=== PATIENT | female | born 1985 | race Caucasian/White ===

== ENCOUNTER 2016-03-15 10:42 | Emergency (ER) | payer OTHER ==
[2016-03-15 13:21] VITALS: BP 118/83
--- NOTE | 2016-03-16 20:19 | ED Physician Documentation ---
Female Urogenital Problems - HISTORIAN Historian: patient - HPI Stated Complaint: cramping RLQ, bloating, bleeding x 3 days Chief Complaint: Female Urogenital Problems Additional Information: cramps and heavy bleeding x 3 daysd, had similar episode 02/16. Onset: days ago (3) Severity: moderate Location of Pain: pelvic pain Front/Back of Body, Lg (Color): 1 - pain Further Comments: no - Vaginal Bleeding Abnormal Bleeding Started: 03/13/16 Compared to Menstrual Periods: heavier LNMP (Last Known Menstrual Period): 01/01/16 : 6 Para: 3 Where was Test Done: clinic (urine) Care: Yes Sexual History: active Contraceptive: none - Associated Symptoms Urinary Symptoms: none Discharge: denies: vaginal discharge - ROS CONST: none GI/: nausea CVS/RESP: none EYES/ENT: none NEURO/PSYCH: none MS/SKIN/LYMPH: none - PAST HX Past History: other (spontaneous miscarriages x 2) Other History: other (migraines) Surgeries/Procedures: none Immunizations: referred to PCP Allergies/Adverse Reactions: Allergies Allergy/AdvReac Type Severity Reaction Status Date / Time amoxicillin Allergy Verified 03/15/16 11:16 Penicillins Allergy Verified 03/15/16 11:16 - SOCIAL HX Smoking History: cigarettes, less than 1 pack/day Alcohol Use: none Drug Use: none - FAMILY HX Family History: none - VITAL SIGNS Vital Signs: Vital Signs Temp Pulse Resp BP Pulse Ox 97.8 F 99 H 16 118/83 99 03/15/16 13:18 03/15/16 13:18 03/15/16 13:18 03/15/16 13:18 03/15/16 13:18 - REVIEWED ASSESSMENTS Nursing Assessment Reviewed: Yes Vitals Reviewed: Yes Progress - Results/Orders Results/Orders: serum hcg qual and quant ordered - Progress Progress: pt. found to have no blood in vaginal vault, no active bleeding from cervical os , and closed cervical os. Critical Care Note - Critical Care Note Total Time (mins): 0 ED Results Lab/Radiology - Lab Results Lab Results: Lab Results 03/15/16 03/15/16 11:10 11:10 Serum HCG, Qual Positive H (NEGATIVE) Beta HCG, Quant 78 mIU/mL mIU/mL - Radiology Radiology Impressions: none ordered - Orders Orders: ED Orders Category Date Time Status HCG QUANTITATIVE Routine Lab 03/15/16 11:10 Completed SERUM HCG Routine Lab 03/15/16 11:10 Completed Female Urogenital Problems - EXAM General Appearance: alert, moderate distress EENT: eye inspection normal, ENT inspection normal, pharynx normal, no signs of dehydration, MERON, other (photosensitivity) Neck: nml inspection Respiratory: no resp. distress, breath sounds nml CVS: reg rate & rhythm, heart sounds normal, equal pulses, no murmur, no gallop Abdomen: soft, non-tender, no organomegaly, no distention, nml bowel sounds Pelvic: external exam nml, speculum exam nml, other (nonenlarged uterus). No: vaginal discharge, active bleeding, blood in vaginal vault, blood clots in vault , cervical dilation, adnexal tenderness (R), adnexal tenderness (L), mass (L) Back: non-tender, painless ROM Skin: color nml, no rash, warm,dry Extremities: non-tender, normal range of motion, no evidence of injury, no edema Neuro: oriented X3, CN's nml as tested, motor nml, sensation nml, mood/affect nml, cognition normal Discharge Clincal Impression: Intrauterine , Threatened Referrals: Primary Doctor,No [Primary Care Provider] - 2 Days Comments: discharged in stable condition with script for vicodin 5/325 #20 1 p.o. qid prn headache or abd. pain. Absolute rest. Follow up with ob next week as scheduled. NEEDS an US!. Return to ER immediately if bleeding recurs or pain worsens. Condition: Stable Disposition: 01 HOME, SELF-CARE Decision to Admit: NO Decision Time: 13:10
== END 2016-03-15 13:10 | disposition home or self-care (01) ==
LOC: ED 10:42
DX: O20.0 Threatened abortion (principal)
CPT/HCPCS: 84702; 84703; 99282

== ENCOUNTER 2016-03-27 18:47 | Emergency (ER) | payer OTHER ==
[2016-03-29] MEDS ORDERED: PHARMACY KEY 1 EACH EACH MC ONE (01:16)
== END 2016-03-27 19:28 | disposition left against medical advice (07) ==
LOC: ED 18:47
DX: R51 Headache (principal)
CPT/HCPCS: 99281

== ENCOUNTER 2016-09-17 18:58 | Emergency (ER) | payer SELFPAY ==
[2016-09-17 19:21] VITALS: BP 118/56
[2016-09-17 19:45] LABS: BASOPHILS % 0.4 (0.0-1.5); EOSINOPHILS % 4.3 % (0.0-6.8); MEAN CORPUSCULAR HEMOGLOBIN 31.1 pg (28.0-34.0); MEAN CORPUSCULAR VOLUME 94.1 fl (80.0-100.0); MONOCYTES % 3.1 % (0.0-11.0); NEUTROPHILS # 7.3 # k/uL (1.4-7.7)
--- NOTE | 2016-09-17 19:46 | ED Physician Documentation ---
General Adult - HISTORIAN Historian: patient - HPI Stated Complaint: sore throat Chief Complaint: General Adult Onset: days ago (2) Timing: still present Severity: moderate Further Comments: yes (Pt is a 30 yo female with sore throat and difficulty swallowing x 2 days. No fever.) - ROS CONST: other (malaise) EYES/ENT: sore throat CVS/RESP: none GI/: none MS/SKIN/LYMPH: none - PAST HX Past History: none Allergies/Adverse Reactions: Allergies Allergy/AdvReac Type Severity Reaction Status Date / Time amoxicillin Allergy Verified 09/17/16 19:11 Penicillins Allergy Verified 09/17/16 19:11 Home Medications: Ambulatory Orders Medication Instructions Recorded Norgestimate-Ethinyl Estradiol 1 tab PO DIRECTED 09/17/16 [Tri-Sprintec] - SOCIAL HX Smoking History: cigarettes - FAMILY HX Family History: No - VITAL SIGNS Vital Signs: Vital Signs Temp Pulse Resp BP Pulse Ox 98.7 F 82 16 118/56 98 09/17/16 18:59 09/17/16 18:59 09/17/16 18:59 09/17/16 18:59 09/17/16 18:59 - REVIEWED ASSESSMENTS Nursing Assessment Reviewed: Yes Vitals Reviewed: Yes Progress - Progress Progress: Solu-medrol 80 mg IM in ER. Rx Keflex 500 mg. Take one every 8 hrs for 10 days. 1st dose in ER. Rx Prednisone 50 mg. Take one daily for 4 days. Start on 09/18/16. ED Results Lab/Radiology - Orders Orders: ED Orders Category Date Time Status CBC/PLATELET/DIFF Routine Lab 09/17/16 19:38 Received CMP Routine Lab 09/17/16 19:38 Received MONOTEST Stat Lab 09/17/16 19:38 Received Rapid Strep [GRP A STREP SCREEN] Stat Lab 09/17/16 19:38 Received General Adult Physical Exam - PHYSICAL EXAM GENERAL APPEARANCE: moderate distress EENT: pharyngeal erythema NECK: supple, lymphadenopathy RESPIRATORY: no resp distress, chest non-tender, breath sounds normal CVS: reg rate & rhythm, heart sounds normal BACK: normal inspection SKIN: warm/dry, normal color EXTREMITIES: non-tender, normal range of motion, no evidence of injury NEURO: oriented X3, motor nml, sensation nml Discharge Clincal Impression: Pharyngitis Qualifiers: Pharyngitis/tonsillitis etiology: unspecified etiology Qualified Code(s): J02.9 - Acute pharyngitis, unspecified Referrals: Primary Doctor,No [Primary Care Provider] - 2 Days Home Medications: Ambulatory Orders Norgestimate-Ethinyl Estradiol [Tri-Sprintec] 1 tab PO DIRECTED 09/17/16 Condition: Stable Disposition: 01 HOME, SELF-CARE Decision to Admit: NO Decision Time: 20:19
[2016-09-17] MEDS: methylPREDNISolone SOD SUCC 40 MG/ML VIAL IM ONE (19:52)
[2016-09-17 19:55] LABS: eGFR (African) > 60; eGFR (Non-African) > 60
[2016-09-17] MEDS: CEPHALEXIN 250 MG CAPSULE PO ONE (20:23)
== END 2016-09-17 20:27 | disposition home or self-care (01) ==
LOC: ED 18:58
DX: J02.9 Acute pharyngitis, unspecified (principal)
CPT/HCPCS: 80053; 85025; 86308; 87070; 87880; J2920; 96372; 99283; J1030